=== PATIENT | male | born 1985 | race Caucasian/White ===

== ENCOUNTER 2017-07-11 14:12 | Outpatient (CLI) | payer OTHER ==
--- NOTE | 2017-07-11 16:58 | ULT ---
SCROTAL ULTRASOUND: CLINICAL HISTORY: Testicular mass, left-sided. FINDINGS: There is diffuse heterogeneous soft tissue of the right aspect of the hemiscrotum. Well-discerned no rmal right testis not identified, as the region is obscured by prominent-sized area of heterogeneous echotexture. Therefore, reliable evaluation for an entity such as testicular torsion cannot be perfo rmed. There is adjacent hydrocele and a presumed testicular appendage. There are demarcated regions of altered echotexture within each aspect of the scrotum which are prominent in volume measuring gre ater than 9 cm on the right. Left testis is grossly unremarkable. IMPRESSION: Indeterminate evaluation of the scrotum as above, as a result of diffuse prominent and heterogeneous echotexture of the right hemiscrotum. The possibility of large mass related to malignancy is the di agnosis of exclusion. This does obscure visualization of right testis and precludes reliable evaluat ion for entity such as testicular torsion. Findings are not further discerned on the basis of this e xam. Primary consideration would include testicular neoplasm versus entity such as lymphoma. As the scrotal contents are difficult to discern due to the diffuse heterogeneous echotexture, recommend ur ologic consultation to further evaluate the clinical history of testicular mass as well as CT exam to further delineate anatomy. CODE T POS: TATY
== END 2017-07-11 14:13 | disposition home or self-care (01) ==
LOC: NAV ULT 14:12
PROVIDERS: ATTEND Family Medicine
DX: N50.9 Disorder of male genital organs, unspecified (principal)
CPT/HCPCS: 76870; 93976

== ENCOUNTER 2017-07-13 12:11 | Outpatient (CLI) | payer OTHER ==
[2017-07-13 13:59] LABS: Bilirubin Negative (Negative); Blood, Urine Trace (Negative); Clarity Clear (Clear); Glucose, Urine (Dipstick) Negative (Negative); Leukocyte Negative (Negative); Nitrite Negative (Negative); Protein, Urine (Dipstick) Negative (Neg-Trace); Specific Gravity, Urine 1.025 (1.005-1.030); Urobilinogen 0.2 mg/dL (0.2-1.0); pH, Urine 6.5 (5.0-9.0)
[2017-07-13 14:03] LABS: Bacteria/HPF None Seen HPF (None Seen); Crystals/HPF RARE SODIUM URATE HPF (Negative); RBC/HPF 0-3 HPF (0-3); Squamous Epithelial None Seen HPF (0-3); WBC/HPF None Seen HPF (0-3)
== END 2017-07-13 12:12 | disposition home or self-care (01) ==
LOC: NAVSJIPCSP 12:11
PROVIDERS: ATTEND Urology
DX: N50.9 Disorder of male genital organs, unspecified (principal)
CPT/HCPCS: 81001